=== PATIENT | male | born 1950 | race Caucasian/White ===

== ENCOUNTER → 2019-07-01 16:00 | Outpatient (BNVA) | payer MEDICARE, SELFPAY | PROVIDERS: PCP Family Medicine; Visit Provider Family Medicine | DX: E78.5 Hyperlipidemia, unspecified (principal); I25.10 Atherosclerotic heart disease of native coronary artery without angina pectoris; G89.4 Chronic pain syndrome; I10 Essential (primary) hypertension | CPT/HCPCS: 80053; 80061; 85025 ==

== ENCOUNTER → 2020-01-10 10:25 | Outpatient (BNVA) | payer MEDICARE, SELFPAY | PROVIDERS: PCP Family Medicine; Visit Provider Family Medicine | DX: E78.2 Mixed hyperlipidemia (principal); Z23 Encounter for immunization; G89.4 Chronic pain syndrome; Z12.5 Encounter for screening for malignant neoplasm of prostate; I25.10 Atherosclerotic heart disease of native coronary artery without angina pectoris; I10 Essential (primary) hypertension; K21.9 Gastro-esophageal reflux disease without esophagitis | CPT/HCPCS: 80053; 80061; 85025; G0103 ==

== ENCOUNTER 2020-01-31 09:08 | Outpatient (CLI) | payer MEDICARE, SELFPAY ==
--- NOTE | 2020-01-31 10:17 | ECG_ITS ---
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 Interpretive Statements NAME OF STUDY: LEXISCAN SESTAMIBI STRESS TEST INDICATION: Chest Pain, PROCEDURE: At the baseline, the EKG revealed normal sinus rhythm with diffuse nonspecific T wave changes and some ST changes that inferior leads. The baseline blood pressure was 154/89 mm Hg with a heart rate of 66 beats/min. Lexiscan was infused over a period of 20 seconds. A total of 0.4 milligrams of Lexiscan was infused. The stress phase was continued for a total of 5 minutes. Heart rate at the end of the stress phase was 97 with a blood pressure 156/86. The EKG at the peak infusion revealed half to [address] depressions in lead II, 3, aVF, V3 to V5. Sestamibi was injected 20 seconds after the Lexiscan infusion. Blood pressure at the end of the recovery phase was 150/87 with a heart rate of 88 per minute. CONCLUSION: 1. Borderline abnormal EKG changes with Lexiscan infusion, may suggest inferior and anterior wall ischemia 2. No LexiScan induced chest pain or cardiac arrhythmia 3. Normal blood pressure and heart rate response 4. Sestamibi/sestamibi perfusion scan pending; see separate report. Electronically Signed On 01-31-2020 21:31:46 CDT by Norma Tinsley M.D. [id number]
[2020-01-31 10:18] VITALS: BMI 27.4
--- NOTE | 2020-01-31 10:18 | NMCV_ITS ---
NM ernestina perf SPECT r/s* [id number] Comfort Laureano Age: 69 Gender: M : 1950 Exam Date: 01/31/2020 10:31 Ordering Phys: Mariam Garay Technologist: SHERICE Mcghee Exam Location: [facility] Indications: Dyspnea on exertion STRESS TEST Please see separate stress test report in [facility] for full findings IMAGE PROTOCOL Rest/Stress 1 Lexiscan Day Radiopharmaceutical Dose (mCi) Administration Site Administered by Rest: Tc-99m 10.6 IV SHERICE Mcghee Sestamibi Stress:Tc-99m 33.0 IV SHERICE Mcghee Sestamibi Rest: 31-Jan-2020 60 Discovery 630 Stress: 31-Jan-2020 45 Discovery 630 0.4mg Lexiscan. Images obtained in supine and prone position. SPECT RESULTS Technical Quality: Good Raw Data Analysis: Normal Image Corrections: No attenuation or motion correction applied Summed Stress Score: 2 Summed Rest Score: 2 Summed Difference Score: 0 PERFUSION FINDINGS Small area of decreased tracer uptake was noted in the apical lateral region, with no significant reversibility. FUNCTIONAL RESULTS (calculated via Gated SPECT) Stress Image LV EF (%): 59 Stress EDV (mL):59 TID: 0.95 Stress ESV (mL):24 FUNCTIONAL FINDINGS: Segmental wall motion analysis revealing no gross wall motion abnormalities. IMPRESSIONS 1. Myocardial perfusion imaging revealing a small area of persistent decreases uptake in the apical lateral region, suggestive of myocardial scarring versus attenuation artifact. 2. Normal left ventricular ejection fraction of 59%. 3. LV wall motion analysis revealing no gross wall motion normalities. 4. Normal LV volume. No significant coronary ischemia, based on the above findings Dr Norma Tinsley MD FACC (Electronically Signed) Final Date: 31 January 2020 16:02 S
[2020-01-31] MEDS: regadenoson 0.4 Mg/5 ml Syringe IVP (12:09)
[2020-01-31 12:10] VITALS: BP 158/90; PULSE 90
== END 2020-01-31 09:09 | disposition home or self-care (01) ==
LOC: RAD 09:14
PROVIDERS: PCP Family Medicine; Visit Provider Nurse Practitioner Family
DX: R06.00 Dyspnea, unspecified (principal); I25.10 Atherosclerotic heart disease of native coronary artery without angina pectoris; R07.9 Chest pain, unspecified
CPT/HCPCS: 78452; 93017; A9500; J2785

== ENCOUNTER → 2020-02-28 09:29 | Outpatient (BNVA) | payer MEDICARE, SELFPAY | PROVIDERS: PCP Family Medicine; Visit Provider Internal Medicine Critical Care Medicine | DX: Z11.59 Encounter for screening for other viral diseases (principal); R06.02 Shortness of breath | CPT/HCPCS: 87635 ==

== ENCOUNTER 2020-03-04 10:33 | Outpatient (CLI) | payer MEDICARE, SELFPAY ==
--- NOTE | 2020-03-04 10:45 | FL_ITS ---
WS: [id number] FL sniff test [id number] REASON FOR EXAM: Elevated right hemidiaphragm. 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 The right hemidiaphragm was evaluated with fluoroscopy with the patient upright. Several breathing ma neuvers were performed including a sniff test. While the excursion of the right hemidiaphragm is decreased in deep breathing and in the sniff test, there was no paradoxical movement. FL/FL sniff test [id number] IMPRESSION: Elevated right hemidiaphragm with attenuated excursion. No paradoxical movement .
== END 2020-03-04 10:34 | disposition home or self-care (01) ==
PROVIDERS: PCP Family Medicine; Visit Provider Internal Medicine Critical Care Medicine
DX: J98.6 Disorders of diaphragm (principal)
CPT/HCPCS: 76000

== ENCOUNTER 2020-03-09 10:43 | Outpatient (CLI) | payer MEDICARE, SELFPAY ==
--- NOTE | 2020-03-09 14:26 | PFTS_ITS ---
Date of Study:03/09/20 Date of Dictation: MECHANICS: Forced vital capacity (FVC) is reduced. Forced expiratory volume in one second (FEV1) is reduced. FEV1/FVC is normal. FLOW VOLUME LOOP: Mild scooping. LUNG VOLUMES: Total lung capacity (TLC) is reduced. Residual volume (RV) is normal. DIFFUSING CAPACITY FOR CARBON MONOXIDE: Normal. INTERPRETATION: The pulmonary function tests are consistent with mild restriction. There is no significant postbronchodilator response. The patient most likely has a combined obstructive and restrictive ventilatory defect. Gas exchange (DLCO) is normal. MTDD
== END 2020-03-09 10:44 | disposition home or self-care (01) ==
PROVIDERS: PCP Family Medicine; Visit Provider Internal Medicine Critical Care Medicine
DX: R06.02 Shortness of breath (principal)
CPT/HCPCS: 94060; 94726; 94729; J7611

== ENCOUNTER → 2020-09-16 10:57 | Outpatient (BNVA) | payer MEDICARE, SELFPAY | PROVIDERS: PCP Family Medicine; Visit Provider Family Medicine | DX: J98.4 Other disorders of lung (principal); R06.02 Shortness of breath; I25.10 Atherosclerotic heart disease of native coronary artery without angina pectoris; I10 Essential (primary) hypertension; G47.09 Other insomnia; E78.2 Mixed hyperlipidemia; G89.4 Chronic pain syndrome | CPT/HCPCS: 80053; 80061; 84443; 85025 ==

== ENCOUNTER → 2020-12-23 11:58 | Outpatient (BNVA) | payer MEDICARE, SELFPAY | PROVIDERS: PCP Family Medicine; Visit Provider Family Medicine | DX: R06.02 Shortness of breath (principal); I25.10 Atherosclerotic heart disease of native coronary artery without angina pectoris; G89.4 Chronic pain syndrome; R53.83 Other fatigue; E78.2 Mixed hyperlipidemia; K21.9 Gastro-esophageal reflux disease without esophagitis; G47.09 Other insomnia; I10 Essential (primary) hypertension | CPT/HCPCS: 80053; 80061; 82607; 84403; 84443; 85025 ==

== ENCOUNTER → 2021-02-08 10:29 | Outpatient (BNVA) | payer MEDICARE, SELFPAY | PROVIDERS: PCP Family Medicine; Visit Provider Nurse Practitioner Family | DX: R05.9 Cough, unspecified (principal); R06.02 Shortness of breath; J40 Bronchitis, not specified as acute or chronic; Z20.822 Contact with and (suspected) exposure to COVID-19 | CPT/HCPCS: 87635 ==

== ENCOUNTER → 2021-03-11 15:43 | Outpatient (BNVA) | payer MEDICARE, SELFPAY | PROVIDERS: PCP Family Medicine; Visit Provider Family Medicine | DX: J40 Bronchitis, not specified as acute or chronic (principal); R05.9 Cough, unspecified | CPT/HCPCS: 71046 ==

== ENCOUNTER → 2021-03-22 15:17 | Outpatient (BNVA) | payer MEDICARE, SELFPAY | PROVIDERS: PCP Family Medicine; Visit Provider Family Medicine | DX: R05.9 Cough, unspecified (principal); J98.11 Atelectasis; J84.10 Pulmonary fibrosis, unspecified; Q79.1 Other congenital malformations of diaphragm | CPT/HCPCS: 71046 ==

== ENCOUNTER 2021-07-13 13:46 | Outpatient (CLI) | payer MEDICARE, SELFPAY ==
--- NOTE | 2021-07-13 14:30 | US_ITS ---
WS: [id number] INDICATION: Inguinal hernia TECHNIQUE: Ultrasound RIGHT inguinal canal in the area of concern. FINDINGS: No visualized inguinal hernia or herniated bowel. Normal compressible intra-abdominal peris talsing bowel in the RIGHT lower quadrant. Prominent lymph node measuring 2.2 x 0.9 x 0.6 cm with pre served fatty hilum. This is nonspecific but may be reactive. No other suspicious abnormalities. US/US soft tissue/extremity 20518 IMPRESSION: No visualized inguinal hernia
== END 2021-07-13 13:47 | disposition home or self-care (01) ==
LOC: RAD 13:52
PROVIDERS: PCP Family Medicine; Visit Provider Family Medicine
DX: K40.90 Unilateral inguinal hernia, without obstruction or gangrene, not specified as recurrent (principal)
CPT/HCPCS: 76882

== ENCOUNTER → 2021-07-27 09:00 | Outpatient (BNVA) | payer MEDICARE, SELFPAY | PROVIDERS: PCP Family Medicine; Referring Provider Family Medicine; Visit Provider Surgery | DX: K43.9 Ventral hernia without obstruction or gangrene (principal) | CPT/HCPCS: 99204 ==

== ENCOUNTER 2021-08-02 08:28 | Day surgery (SDC) | payer MEDICARE, SELFPAY ==
[2021-07-30 12:38] VITALS: BMI 26.2
[2021-08-02] VITALS (16 sets, daily range): BP systolic 132–165; BP diastolic 73–102; PULSE 54–90; RESP 13–27; TEMP 36.3–36.7; O2SAT 90–94
--- NOTE | 2021-08-02 08:56 | W.PM.OPSFHP ---
Same Day Surgery H&P Indication for Procedure/HPI DATE OF PROCEDURE: August 02, 2021 CHIEF COMPLAINT/INDICATIONFOR SURGICAL PROCEDURE: Ventral hernia repair PREOP DIAGNOSIS: Ventral hernia PLANNED PROCEDURE: Operation Date: 08/02/21 10:20 Proposed Procedures p Laparoscopic Ventral Hernia Repair 77994/ventra hernia K43.9(Not Applicable) - Raza Cali MD Medications/Allergies* Home Medications Medication Instructions Recorded Confirmed Type nitroglycerin 0.4 mg sublingual 0.4 mg SUBLINGUAL Q5M PRN 07/01/19 07/30/21 History tablet aspirin 81 mg tablet,delayed 81 mg PO DAILY 07/04/19 07/30/21 History release (Adult Low Dose Aspirin) wpyitgszmum-vyo-zmzgnjosn-hrb 1 tab PO DAILY tab 01/02/20 07/30/21 History 149-hyalur 500 mg-500 mg-66.7 mg tablet (Yshiugeptyq-Biycibmmakt-CCX (with antiox)) tramadol 50 mg tablet 50 mg PO BID 07/30/21 07/30/21 History triamcinolone acetonide 0.5 % 1 applic TOPICAL BID 07/30/21 07/30/21 History topical cream (Triderm) Allergies/Adverse Reactions Allergy/AdvReac Type Severity Reaction Status Date / Time No Known Allergies Allergy Verified 07/30/21 12:33 Pertinent History/Comorbid Conditions* Medical History (Updated 07/06/21 @ 15:58 by Ximena Coronado MD) ASHD (arteriosclerotic heart disease) Bradycardia Chronic pain syndrome GERD (gastroesophageal reflux disease) Hypertension Insomnia Surgical History (Updated 01/16/21 @ 19:11 by Niesha Arriaga MD) S/P hernia repair Multiple S/P PTCA (percutaneous transluminal coronary angioplasty) S/P rotator cuff repair Right Family History (Updated 07/04/19 @ 15:15 by Kiki Cardona RN) Father, CVA Dementia Mother Heart disease Mother Cancer Mother Breast CA Stroke Father Social History Smoking and tobacco status: former smoker Quit status (tobacco): has quit using tobacco Year quit tobacco: 1995 [id number] Second hand smoke exposure: Yes Smoking risk assessment/counseling performed?: No Alcohol intake: former Desire information about alcohol rehabilitation?: No Counseling given: No Lives independently: Yes Household members: spouse Housing: House Marital status: service: No Current occupational status: retired History of recent travel: No Current gender identity: Male Pertinent Exam Findings alert, oriented x 3 and regular rate & rhythm Recommendations Surgery/Procedure today Coding Level of Care Code Acute Maintenance Mechanic for Noé Cabello
[2021-08-02] MEDS: sodium chloride 0.9% 1,000 ML 30 ML IV (10:14)
--- NOTE | 2021-08-02 10:30 | ANES.PREANE2 ---
Pre-Anesthetic Assessment Height/Weight: Height 1.65 m Weight 71.668 kg Temp Pulse Resp BP Pulse Ox 97.4 F L 54 L 16 146/73 93 08/02/21 10:00 08/02/21 10:00 08/02/21 10:00 08/02/21 10:00 08/02/21 10:00 Preop Diagnosis: Ventral hernia Operation Date: 08/02/21 10:20 Proposed Procedures p Laparoscopic Ventral Hernia Repair 77516/ventra hernia K43.9(Not Applicable) - Raza Cali MD Last intake: Intake Last Liquid Date 08/01/21 Last Liquid Time 20:00 Last Solid Date 08/01/21 Last Solid Time 20:00 Social former smoker Pulmonary Chronic Obstructive Pulmonary Disease R hemidiaphragm weakness/paralysis CV/HEM Arrythmia (antonio), Coronary Artery Disease (s/p PCI/stents (> 1 year ago)) and Hypertension IMPRESSIONS ?1.? Myocardial perfusion imaging revealing a small area of persistent decreases ?uptake in the apical lateral region, suggestive of myocardial scarring versus ?attenuation artifact. ?2.? Normal left ventricular ejection fraction? of 59%. ?3.? LV wall motion analysis revealing no gross wall motion normalities. ?4.? Normal LV volume. ?No significant coronary ischemia, based on the above finding 01/27 stress test CONCLUSION: 1.? Borderline abnormal EKG changes with Lexiscan infusion, may suggest inferior and anterior wall ischemia ?2. No LexiScan induced chest pain or cardiac arrhythmia 3.? Normal blood pressure and heart rate response 4.? Sestamibi/sestamibi perfusion scan pending; see separate report. GI Gastroesophageal Reflux Disease Anesthetic Plan ASA status: 3 Anesthesia: General Risk of > 500 ml blood loss (7ml/kg in children): No Medications/Allergies Home Medications Medication Instructions Recorded Confirmed Last Taken Type nitroglycerin 0.4 mg sublingual 0.4 mg SUBLINGUAL Q5M PRN 07/01/19 08/02/21 Unknown History tablet aspirin 81 mg tablet,delayed 81 mg PO DAILY 07/04/19 08/02/21 07/30/21 History release (Adult Low Dose Aspirin) oavrzuarbkz-iwe-xqjptedey-hrb 1 tab PO DAILY tab 01/02/20 08/02/21 Unknown History 149-hyalur 500 mg-500 mg-66.7 mg tablet (Ppjhgeerpxi-Wmmnwgnhmwg-FOP (with antiox)) atorvastatin 20 mg tablet See Rx Instructions .ROUTE 06/07/21 08/02/21 07/31/21 Rx .COMPLEX #90 tab albuterol sulfate 90 mcg/actuation 2 puff INHALATION Q6H PRN #18 g 07/06/21 08/02/21 Unknown Rx aerosol inhaler (Ventolin HFA) budesonide-formoterol HFA 160 2 puff INHALATION BID #10.2 g 07/06/21 08/02/21 Unknown Rx mcg-4.5 mcg/actuation aerosol inhaler (Symbicort) clopidogrel 75 mg tablet See Rx Instructions .ROUTE 07/06/21 08/02/21 07/30/21 Rx .COMPLEX #90 tab metoprolol tartrate 25 mg tablet 12.5 mg PO .HS #45 tab 07/06/21 08/02/21 08/01/21 Rx pantoprazole 40 mg tablet,delayed See Rx Instructions .ROUTE 07/06/21 08/02/21 08/01/21 Rx release .COMPLEX #30 tab tamsulosin 0.4 mg capsule See Rx Instructions .ROUTE 07/06/21 08/02/21 08/01/21 Rx .COMPLEX #30 cap trazodone 100 mg tablet See Rx Instructions .ROUTE 07/06/21 08/02/21 07/31/21 Rx .COMPLEX #90 tab tramadol 50 mg tablet 50 mg PO BID 07/30/21 08/02/21 07/31/21 History triamcinolone acetonide 0.5 % 1 applic TOPICAL BID 07/30/21 08/02/21 Unknown History topical cream (Triderm) Allergies Allergy/AdvReac Type Severity Reaction Status Date / Time No Known Allergies Allergy Verified 07/30/21 12:33 Current Medications Generic Name Dose Route Start Last Admin Trade Name Freq PRN Reason Stop Dose Admin Sodium Chloride 1,000 mls @ 30 mls/hr 08/02/21 09:30 08/02/21 10:14 Sodium Chloride 0.9% IV 08/03/21 09:29 30 mls/hr .Q24H VIANNEY Administration PFSH Anesthesia Medical History ASHD (arteriosclerotic heart disease) Bradycardia Chronic pain syndrome GERD (gastroesophageal reflux disease) Hypertension Insomnia Surgical History S/P hernia repair Multiple S/P PTCA (percutaneous transluminal coronary angioplasty) S/P rotator cuff repair Right Family History Mother Dementia Cancer Breast CA Heart disease Father , CVA Stroke Social History Smoking and tobacco status: former smoker Quit status (tobacco): has quit using tobacco Year quit tobacco: 1995 [id number] Second hand smoke exposure: Yes Smoking risk assessment/counseling performed?: No Alcohol intake: former Desire information about alcohol rehabilitation?: No Counseling given: No Lives independently: Yes Household members: spouse Housing: House Marital status: service: No Current occupational status: retired History of recent travel: No Current gender identity: Male Data Anesthesia Cardiac Studies: Sestamibi Stress Test (Cardiology) 01/31/20
--- NOTE | 2021-08-02 11:41 | P.OP_ITS ---
Operative Report Date of procedure: August 02, 2021 Pre-op diagnosis: Ventral hernia Post-op diagnosis: Incarcerated ventral hernia containing omentum, 2 separate defects 3 cm apart in the midline superior to the umbilicus Procedure done: Laparoscopic repair of incarcerated ventral hernia with ventralight ST mesh measuring 15 x 15 cm Pathology: none sent Surgeon: Raza Cali Anesthesia: General Condition: stable Disposition: PACU Procedure: The patient was taken to the Operating Room and was intubated under general anesthesia after the antibiotic had been administered. The abdomen was prepped and draped in a sterile manner. Using a 15 blade, a 2-cm incision was made in the left upper quadrant in the anterior axillary line and peritoneum was entered using open Spencer technique. A 10 mm Marquis port was placed and 15 mm of pneumoperitoneum was created after a 10 mm 30? scope had been introduced. 5 mm port was placed at the level of the umbilicus on the left side. Using a combination of electrocautery and scissors the peritoneum in the midline was taken down and the omental fat within the hernial sac was reduced. A spinal needle was introduced through the abdominal wall and the edges of the hernial defect were marked and measured 7x6 cm. A 4 cm margin was marked on the abdominal wall on the outer edge of the hernial defect. 15 x [address] mesh was selected and 4 separate 2-0 [place]-Luciano sutures were placed at the 4 corners of the mesh. Grannie needle was passed through the stab incisions and used to grasp the free ends of the [place]-Luciano sutures which were used to pull the mesh up against the abdominal wall; 5 mm SecurStraps were placed 1 cm apart along the edge of the mesh to hold it against the abdominal wall. At the end of this, it was noted that the mesh was well positioned over the hernial defect. 20 cc of saline mixed with 20cc of Exparel mixed with 20cc of 0.5% Marcaine was infiltrated in the midclavicular line bilaterally under laparoscopic visualization for a TAP block. All ports were removed under direct visualization and there was no bleeding noted from the port sites. The external oblique aponeurosis was approximated at LUQ port site using figure of eight 0 Vicryl suture. The subcutaneous tissue was approximated using 3-0 Vicryl sutures. The skin at all port sites was closed using subcuticular 4-0 Monocryl suture. The stab incisions and the port sites were covered with Dermabond. Abdominal binder was placed at the end of the procedure and the patient was extubated and transferred to recovery room in stable condition.
[2021-08-02] MEDS: fentaNYL 50 mcg/mL INJ 2mL IVP ×2 (12:01→12:18)
--- NOTE | 2021-08-02 12:24 | SUR.PHASEI ---
1151 PT TO PACU CONFUSED RESTLESS, SEE PAIN MEDS GIVEN BY DR BLAS RIGHT BEFORE ADMIT, PT DOES NOT OPEN EYES OR FOCUS ON SPEAKER ABDOMEN SOFT WITH 3 SITES WITH TROCAR SITES WITH SKIN GLUE AND 3 NEEDLE SITES WITH SKIN GLUE BILAT SCD'S ON PT HAS ID BRACELET TO LT WRIST PT ID'D WITH 2 IDENTIFIERS, IV TO RT AC #20 WITH NS 150 ML UP AT KVO RATE PER GRAVITY, 1201 PT RESTLES AND MOANING SEE PAIN MED GIVEN,ATTEMTS TO REORIENT PT REPEATEDLY
--- NOTE | 2021-08-02 12:41 | SUR.PHASEI ---
1218 PT OPENS EYES KNOWS NAME , CONFUSED TO ALL ELSE PT MOANS AND HOLDS ABDOMEN SEE PAIN MED GIVEN, PT ON 4LNC PT RESP EVEN AND UNLABORED. PT KEEPS TAKING MASK AND NASAL CANNULA OFF, PT REORIENTED REPEATEDLY, VSS NO DISTRESS NOTED AT THIS TIME MONITOR SR NO ECTOPY NOTED. 1243 PT MORE ALERT KNOWS NAME AND WHERE HE LIVES, PT RESPONDS VERBALLY AND APPROPRIATELY TO MOST QUESTIONS ABOUT PAIN AND NAUSEA, PT FORGETS WHERE HE IS NOW AND RECENT EVENTS. PT TO OPS HANDOFF AT BEDSIDE, PT STATES HE IS (ALWAYS SLOW TO AWAKE).
[2021-08-02] MEDS: HYDROcodone-acetaminophen 5-325 mg Tablet 1 TAB PO (13:31)
--- NOTE | 2021-08-02 14:40 | ANE.PACU2 ---
Inpatient post-anesthesia follow up: Airway intact: Yes Vital signs: Temperature 98 F Pulse Rate 83 Respiratory Rate 16 Blood Pressure 133/77 Pulse Oximetry 90 Oxygen Delivery Me thod Room Air Oxygen Flow Rate 3 Fraction of Inspir ed Oxygen Hydration adequate: Yes Nausea and vomiting: No Pain level: 2 Mental status: Baseline
== END 2021-08-02 13:37 | disposition home or self-care (01) ==
PROVIDERS: PCP Family Medicine; Visit Provider Surgery
PROC: 0WQF4ZZ Repair Abdominal Wall, Percutaneous Endoscopic Approach (ICD-10-PCS; CPT 49653; principal; 2021-08-02 10:20)
DX: K43.6 Other and unspecified ventral hernia with obstruction, without gangrene (principal); Z87.891 Personal history of nicotine dependence; J44.9 Chronic obstructive pulmonary disease, unspecified; G81.90 Hemiplegia, unspecified affecting unspecified side; K21.9 Gastro-esophageal reflux disease without esophagitis; I25.10 Atherosclerotic heart disease of native coronary artery without angina pectoris; I10 Essential (primary) hypertension; G89.4 Chronic pain syndrome; Z79.82 Long term (current) use of aspirin; Z79.891 Long term (current) use of opiate analgesic
CPT/HCPCS: 49653; C1781; C9290; J0690; J1100; J2250; J2405; J2704; J3010; J3490; J7030

== ENCOUNTER → 2021-08-17 08:57 | Outpatient (BNVA) | payer MEDICARE, SELFPAY | PROVIDERS: PCP Family Medicine; Visit Provider Surgery | DX: Z98.890 Other specified postprocedural states (principal); Z87.19 Personal history of other diseases of the digestive system ==

== ENCOUNTER → 2021-09-14 07:56 | Outpatient (BNVA) | payer MEDICARE, SELFPAY | PROVIDERS: PCP Family Medicine; Visit Provider Surgery | DX: Z98.890 Other specified postprocedural states (principal); Z87.19 Personal history of other diseases of the digestive system | CPT/HCPCS: 99024 ==

== ENCOUNTER → 2021-11-23 14:04 | Outpatient (BNVA) | payer MEDICARE, SELFPAY | PROVIDERS: PCP Family Medicine; Visit Provider Family Medicine | DX: I10 Essential (primary) hypertension (principal); I25.10 Atherosclerotic heart disease of native coronary artery without angina pectoris; E78.5 Hyperlipidemia, unspecified; Z12.5 Encounter for screening for malignant neoplasm of prostate; E78.2 Mixed hyperlipidemia; J44.1 Chronic obstructive pulmonary disease with (acute) exacerbation; M19.90 Unspecified osteoarthritis, unspecified site | CPT/HCPCS: 80053; 80061; 84443; 85025; G0103 ==

== ENCOUNTER → 2022-01-13 12:44 | Outpatient (BNVA) | payer MEDICARE, SELFPAY | PROVIDERS: PCP Family Medicine; Visit Provider Internal Medicine | DX: I25.10 Atherosclerotic heart disease of native coronary artery without angina pectoris (principal); I10 Essential (primary) hypertension; R00.1 Bradycardia, unspecified; Z87.891 Personal history of nicotine dependence | CPT/HCPCS: 99214 ==

== ENCOUNTER → 2022-03-14 14:33 | Outpatient (BNVA) | payer MEDICARE, SELFPAY | PROVIDERS: PCP Family Medicine; Visit Provider Family Medicine | DX: R51.9 Headache, unspecified (principal) | CPT/HCPCS: 85025; 85651 ==

== ENCOUNTER 2022-03-15 20:16 | Emergency (ER) | payer MEDICARE, SELFPAY ==
[2022-03-15 20:21] VITALS: BP 160/81; PULSE 70; RESP 18; TEMP 36.8; O2SAT 94; BMI 24.3
--- NOTE | 2022-03-15 20:35 | CTR_ITS ---
PROCEDURE INFORMATION: Exam: CT Head Without Contrast Exam date and time: 03/15/2022 9:15 PM Age: 71 years old Clinical indication: Pain; Patient HX: C/O headache; Additional info: HUBBARD TECHNIQUE: Imaging protocol: Computed tomography of the head without contrast. Radiation optimization: All CT scans at this facility use at least one of these dose optimization techniques: automated exposure control; mA and/or kV adjustment per patient size (includes targeted exams where dose is matched to clinical indication); or iterative reconstruction. COMPARISON: [place] [id number] 07/25/2017 8:55 AM RADIATION DOSE METRICS: Total DLP (mGy-cm): 1232.68 FINDINGS: Brain: No CT evidence for acute ischemia, mass or hemorrhage. Cerebral ventricles: Generalized sulcal widening and ventricular enlargement is due to white matter volume loss which is greater than expected for the patient's age. Paranasal sinuses: Mild mucosal thickening in the paranasal sinuses without fluid levels. Mastoid air cells: Visualized mastoid air cells are well aerated. Bones/joints: Unremarkable. No acute fracture. Soft tissues: Unremarkable. CT/CT head wo con* [id number] IMPRESSION: 1. No acute intracranial findings. 2. White matter volume loss is greater than typical for the patient's age
--- NOTE | 2022-03-15 20:35 | XRR_ITS ---
PROCEDURE INFORMATION: Exam: XR Chest Exam date and time: 03/15/2022 8:43 PM Age: 71 years old Clinical indication: Other: AMS TECHNIQUE: Imaging protocol: Radiologic exam of the chest. Views: 1 view. COMPARISON: CR XR chest 2V* [id number] 03/22/2021 3:21 PM FINDINGS: Tubes, catheters and devices: There is a new surgical clip per screw at the left thoracic inlet. Lungs: Since March 2021 there is a new thick-walled left lower lobe cavitary structure measuring approximately 6.4 x 6.2 cm. No fluid levels. The lungs are otherwise clear and free of effusion. Pleural spaces: Unremarkable. No pleural effusion. No pneumothorax. Heart/Mediastinum: Unremarkable. No cardiomegaly. Bones/joints: Chronic right humeral head ligamentous anchor. Soft tissues: Possible chronic left mastectomy. XR/XR chest 1V portable [id number] IMPRESSION: New left lower lobe 6 cm cavitary lesion. This could be infectious or neoplastic. Recommend further evaluation with CT
--- NOTE | 2022-03-15 20:39 | ED_ITS ---
HPI - Neuro Symptoms/Deficit General: Chief Complaint: Neuro Symptoms/Deficit Stated Complaint: headache, swollen nose Time Seen by Provider: 03/15/22 20:32 Source: patient Mode of arrival: ambulatory Limitations: no limitations History of Present Illness: 71-year-old male states he been having right-sided facial pain and headache for the last 4 to 5 days family states has had some confusion has been going on for months his PCP was concerned he could have dementia he states that he has had some swelling to his right side of the face and they are worried about facial droop as well. No slurred speech no weakness he states his pain is currently a 7 out of 10 he did have chickenpox as a kid this rash appears to be shingles. Associated symptoms: Reports headache(s); Deny chest pain, nausea or vomiting Review of Systems Const: Denies: fever(s), chills, body aches or change in appetite Eyes: Denies: blurry vision or eye discomfort ENMT: Denies: throat pain or dental pain Card: Denies: chest pain Resp: Denies: dyspnea GI: Denies: abdominal pain, nausea, vomiting or diarrhea : Denies: dysuria Musc: Denies: neck pain or back pain Skin/Breast: Denies: rash Neuro: Reports: headache(s) Psych: Denies: depression Kishor/Lymph: Denies: easy bruising All/Imm: Denies: urticaria PFSH ED PFSH: Medical History ASHD (arteriosclerotic heart disease) Bradycardia Chronic pain syndrome GERD (gastroesophageal reflux disease) Hypertension Insomnia Surgical History H/O ventral hernia repair (08/02/21) S/P hernia repair Multiple S/P PTCA (percutaneous transluminal coronary angioplasty) S/P rotator cuff repair Right Family History Mother Dementia Cancer Breast CA Heart disease Father , CVA Stroke Social History Smoking and tobacco status: former smoker Quit status (tobacco): has quit using tobacco Year quit tobacco: 1995 [id number] Second hand smoke exposure: Yes Smoking risk assessment/counseling performed?: No Alcohol intake: former Desire information about alcohol rehabilitation?: No Counseling given: No Lives independently: Yes Household members: spouse Housing: House Marital status: service: No Current occupational status: retired History of recent travel: No Current gender identity: Male NIH stroke score NIHSS: Level Of Consciousness - 1a: 0 Level Of Consciousness Questions - 1b: Both Correct Level Of Consciousness Commands - 1c: Both Correct Best Gaze - 2: Normal Visual Wallace - 3: No Visual Loss Facial Palsy - 4: Normal Motor Arm Right - 5: No Drift Motor Arm Left - 5: No Drift Motor Leg Right - 6: No Drift Motor Leg Left - 6: No Drift Limb Ataxia - 7: Absent Sensory - 8: Normal Best Language - 9: No Aphasia Dysarthia - 10 : Normal Extinction And Inattention - 11: 0 Score: Total Score: 0 Physical Exam Const: COMMON NORMALS: no acute distress, healthy appearing and alert ORIENTATION/CONSCIOUSNESS: Yes oriented to person and Yes oriented to place; not oriented to time HENMT: COMMON NORMALS: normocephalic and atraumatic HEAD & SCALP: normocephalic and atraumatic OTHER: Rash to the right side of his nose patient's scalp that is very tender to touch appearance of shingles Eye: COMMON NORMALS: Equal, round and reactive pupils present and EOMs intact bilaterally PUPIL: Yes Equal, round and reactive pupils present Neck/C-Spine: COMMON NORMALS: full ROM and supple Chest: COMMONS NORMALS: normal inspection of the chest and normal palpation of entire chest wall Resp: COMMON NORMALS: normal respiratory effort, No retractions, No use of accessory muscles and clear to auscultation bilaterally AUSCULTATION: clear to auscultation bilaterally Cardio: COMMON NORMALS: regular rate, regular rhythm and No murmurs present (Cardio) RATE: regular rate RHYTHM: regular rhythm GI: COMMON NORMALS: Normal to inspection, nondistended, normoactive bowel sounds present, Soft to palpation, non-tender and no masses PALPATION: Yes Soft to palpation Extremity: COMMON NORMALS: normal to inspection and full ROM Neuro: COMMON NORMALS: CN's II-XII intact bilaterally, moves all extremities and no focal motor deficits SENSORIUM/ORIENTATION: Yes alert, Yes oriented to person, Yes oriented to place and No oriented to time SPEECH: speech normal GAIT: Yes Normal gait present Psych: COMMON NORMALS: mental status grossly normal, Normal thought process present and cooperative THOUGHT PROCESS: Normal thought process present Skin: COMMON NORMALS: no rashes or lesions noted and no wounds GENERAL SKIN EXAM: no rashes or lesions noted Course Vital Signs: Vital signs: Vital Signs Temperature 98.2 F 03/15/22 20:21 Pulse Rate 68 03/15/22 21:40 Respiratory Rate 21 H 03/15/22 21:40 Blood Pressure 151/88 03/15/22 21:40 Pulse Oximetry 95 03/15/22 21:40 Oxygen Delivery Me thod 03/15/22 20:21 MDM - Neuro Symptoms/Deficit Medical Decision Making Patient presents here with headache from his shingles he does have shingles the right side of his face I did stain his eye he has no signs of ocular involvement we will start him on acyclovir I did speak to ophthalmology with he is to follow-up in 1 to 2 days he is return if worsening. Lab Data 03/15/22 20:40 03/15/22 20:40 Radiology Impressions Chest X-Ray 03/15/22 20:35 IMPRESSION: New left lower lobe 6 cm cavitary lesion. This could be infectious or neoplastic. Recommend further evaluation with CT Head CT 03/15/22 20:35 IMPRESSION: 1. No acute intracranial findings. 2. White matter volume loss is greater than typical for the patient's age Chest CT 03/15/22 20:56 IMPRESSION: 1. Mild emphysematous changes. 2. Old granulomatous disease 3. Coronary atherosclerotic disease. 4. No acute infiltrate. 5. Pulmonary findings questioned on the chest radiograph of the result of an extraneous foreign object external to the patient. No acute pulmonary pathology is identified. Laboratory Results WBC 8.4 10^3/uL (4.0-10.0) 03/15/22 20:40 RBC 5.22 10^6/uL (4.1-5.3) 03/15/22 20:40 Hgb 16.3 g/dL (11.7-16.6) 03/15/22 20:40 Hct 49.1 % (42.0-52.0) 03/15/22 20:40 MCV 94.1 fl (80-94) H 03/15/22 20:40 MCH 31.2 pg (28.0-34.0) 03/15/22 20:40 MCHC 33.2 g/dL (30.0-36.0) 03/15/22 20:40 RDW 12.7 % (12.1-15.1) 03/15/22 20:40 Plt Count 205 10^3/cmm (130-400) 03/15/22 20:40 MPV 9.5 fL (7.4-10.4) 03/15/22 20:40 Neut % (Auto) 68.2 % 03/15/22 20:40 Lymph % (Auto) 20.6 % 03/15/22 20:40 [place] % (Auto) 8.4 % 03/15/22 20:40 Eos % (Auto) 2.1 % 03/15/22 20:40 Baso % (Auto) 0.5 % 03/15/22 20:40 Neut # (Auto) 5.75 10^3/uL (1.8-7.7) 03/15/22 20:40 Lymph # (Auto) 1.7 10^3/uL (0.8-4.8) 03/15/22 20:40 [place] # (Auto) 0.7 10^3/uL (0.2-0.9) 03/15/22 20:40 Eos # (Auto) 0.2 10^3/uL (0.0-0.8) 03/15/22 20:40 Baso # (Auto) 0.0 10^3/uL (0.0-0.1) 03/15/22 20:40 Nucleated RBC % (auto) 0 % 03/15/22 20:40 Nucleated RBCs # 0.0 /100WBC 03/15/22 20:40 Sodium 140 mmol/L (136-145) 03/15/22 20:40 Potassium 3.3 mmol/L (3.5-5.1) L 03/15/22 20:40 Chloride 101 mmol/L (98-107) 03/15/22 20:40 Carbon Dioxide 32 mmol/L (22-29) H 03/15/22 20:40 Anion Gap 10.3 (5-19) 03/15/22 20:40 BUN 8 mg/dL (8-23) 03/15/22 20:40 Creatinine 0.9 mg/dL (0.7-1.2) 03/15/22 20:40 GFR Calculation 83.7 mL/min (90-130) L 03/15/22 20:40 Glucose 166 mg/dL (65-115) H 03/15/22 20:40 Calculated Osmolality 292 mOsm/kg (285-295) 03/15/22 20:40 Calcium 10.5 mg/dL (8.5-10.5) 03/15/22 20:40 Total Bilirubin 0.5 mg/dL (0.15-1.2) 03/15/22 20:40 AST 11 U/L (0-40) 03/15/22 20:40 ALT 10 U/L (0-41) 03/15/22 20:40 Alkaline Phosphatase 69 U/L (40-130) 03/15/22 20:40 Total Protein 6.7 g/dL (6.6-8.7) 03/15/22 20:40 Albumin 4.2 g/dL (3.5-5.2) 03/15/22 20:40 Globulin 2.5 g/dL (1.3-4.6) 03/15/22 20:40 Discharge Plan Discharge Patient Disposition: Home Clinical Impression: Shingles, Headache Condition: Stable Prescriptions: New hydrocodone-acetaminophen 5-325 mg tablet 1 tab PO Q6H PRN (Reason: pain) Qty: 14 0RF ondansetron 4 mg tablet,disintegrating 4 mg PO Q6H PRN (Reason: nausea and vomiting) Qty: 14 0RF acyclovir 800 mg tablet 800 mg PO 5XD 7 Days Qty: 35 0RF Rx Instructions: space evenly during waking hours erythromycin 5 mg/gram (0.5 %) ointment 1 applic ophthalmic (eye) Q8H 5 Days Qty: 3.5 0RF No Action nitroglycerin 0.4 mg tablet, sublingual 0.4 mg SUBLINGUAL Q5M PRN (Reason: Chest Pain) aspirin [Adult Low Dose Aspirin] 81 mg tablet,delayed release (DR/EC) 81 mg PO DAILY metoprolol tartrate 25 mg tablet 12.5 mg PO .HS Qty: 45 3RF pantoprazole 40 mg tablet,delayed release (DR/EC) See Rx Instructions .ROUTE .COMPLEX Qty: 30 2RF Dose Instruction: Take 1 tablet by mouth once daily Rx Instructions: Take 1 tablet by mouth once daily tamsulosin 0.4 mg capsule See Rx Instructions .ROUTE .COMPLEX Qty: 30 5RF Dose Instruction: Take 1 capsule by mouth once daily Rx Instructions: Take 1 capsule by mouth once daily trazodone 100 mg tablet See Rx Instructions .ROUTE .COMPLEX Qty: 90 1RF Dose Instruction: TAKE 1 TABLET BY MOUTH AT BEDTIME NEEDED FOR SLEEP Rx Instructions: TAKE 1 TABLET BY MOUTH AT BEDTIME NEEDED FOR SLEEP clopidogrel 75 mg tablet See Rx Instructions .ROUTE .COMPLEX Qty: 90 3RF Hold Instructions: Resume on 08/06/21. Dose Instruction: Take 1 tablet by mouth once daily Rx Instructions: Take 1 tablet by mouth once daily atorvastatin 20 mg tablet See Rx Instructions .ROUTE .COMPLEX Qty: 90 1RF Dose Instruction: Take 1 tablet by mouth once daily Rx Instructions: Take 1 tablet by mouth once daily memantine [Namenda] 10 mg tablet 10 mg PO ONCE Qty: 30 2RF tramadol 50 mg tablet 50 mg PO Q8H Qty: 90 0RF triamcinolone acetonide [Triderm] 0.5 % cream 1 applic topical BID Discharge Orders: Discharge ED (Routine); Ordered 03/15/22 Ordered By: Rafaela Hall Referrals: Antwon Kemp MD [Physician] - 1-3 days Ximena Coronado MD [Primary Care Provider] - Discharge Diet: Advance as tolerated Discharge Activity: Resume usual activity Patient Instructions: Ct (ED) Coding Level of Care Code ED Door Clamper for Chg Fwd Exam Comprehensive
--- NOTE | 2022-03-15 20:56 | CTR_ITS ---
PROCEDURE INFORMATION: Exam: CT Chest Without Contrast; Diagnostic Exam date and time: 03/15/2022 9:20 PM Age: 71 years old Clinical indication: Shortness of breath; Prior surgery; Surgery type: Coronary stent. Patient HX: C/O SOB. History of copd. ; Additional info: Mass TECHNIQUE: Imaging protocol: Diagnostic computed tomography of the chest without contrast. Radiation optimization: All CT scans at this facility use at least one of these dose optimization techniques: automated exposure control; mA and/or kV adjustment per patient size (includes targeted exams where dose is matched to clinical indication); or iterative reconstruction. COMPARISON: CR (CHEST, ) 03/15/2022 8:43 PM RADIATION DOSE METRICS: Total DLP (mGy-cm): 340.5 FINDINGS: Lungs: There are findings of paraseptal emphysema in the upper lobes. There is some mild dependent atelectasis in both lungs. No acute infiltrate is identified. There is calcified granuloma in the right middle lobe. There is a foreign object within the patient's clothing overlying the upper left chest, most likely a set of dentures. These extraneous foreign objects are the culprit responsible for the findings on the recent chest radiograph interpreted as possible cavitary pulmonary lesion. No cavitary pulmonary lesion or other acute pulmonary finding is identified. Pleural spaces: Unremarkable. No pneumothorax. No pleural effusion. Heart: Heart is within normal limits of size. Coronary arteries: There is severe atherosclerotic calcification of the coronary arteries. Lymph nodes: There is a right hilar calcification in keeping with calcified lymph node from old granulomatous disease. Vasculature: Unremarkable. No aortic aneurysm. Bones/joints: Unremarkable. No acute fracture. Soft tissues: No cavitary pulmonary lesion or specific breast abnormality is identified. CT/CT chest wo con [id number] IMPRESSION: 1. Mild emphysematous changes. 2. Old granulomatous disease 3. Coronary atherosclerotic disease. 4. No acute infiltrate. 5. Pulmonary findings questioned on the chest radiograph of the result of an extraneous foreign object external to the patient. No acute pulmonary pathology is identified.
[2022-03-15 20:58] LABS: Basophils % 0.5 %; Eosinophils # 0.2 10^3/uL (0.0-0.8); Eosinophils % 2.1 %; Hematocrit 49.1 % (42.0-52.0); Hemoglobin 16.3 g/dL (11.7-16.6); Lymphocytes # 1.7 10^3/uL (0.8-4.8); Lymphocytes % 20.6 %; Mean Corpuscular HGB Conc 33.2 g/dL (30.0-36.0); Mean Corpuscular Hemoglobin 31.2 pg (28.0-34.0); Mean Corpuscular Volume 94.1 fl (80-94); Mean Platelet Volume 9.5 fL (7.4-10.4); Monocytes # 0.7 10^3/uL (0.2-0.9); Monocytes % 8.4 %; Neutrophils # 5.75 10^3/uL (1.8-7.7); Neutrophils % 68.2 %; Nucleated Red Blood Cells % 0 %; Platelet Count 205 10^3/cmm (130-400); Red Blood Count 5.22 10^6/uL (4.1-5.3); Red Cell Distribution Width 12.7 % (12.1-15.1); White Blood Count 8.4 10^3/uL (4.0-10.0)
[2022-03-15 21:15] LABS: Alanine Aminotransferase 10 U/L (0-41); Albumin Level 4.2 g/dL (3.5-5.2); Alkaline Phosphatase 69 U/L (40-130); Anion Gap 10.3 (5-19); Aspartate Amino Transferase 11 U/L (0-40); Blood Urea Nitrogen 8 mg/dL (8-23); Calcium 10.5 mg/dL (8.5-10.5); Carbon Dioxide 32 mmol/L (22-29); Chloride 101 mmol/L (98-107); Globulin 2.5 g/dL (1.3-4.6); Glomerular Filtration Rate 83.7 mL/min (90-130); Glucose 166 mg/dL (65-115); Osmolality Calculated 292 mOsm/kg (285-295); Potassium 3.3 mmol/L (3.5-5.1); Sodium 140 mmol/L (136-145); Total Bilirubin 0.5 mg/dL (0.15-1.2); Total Protein 6.7 g/dL (6.6-8.7)
[2022-03-15 21:40] VITALS: BP 151/88; PULSE 68; RESP 21; O2SAT 95
[2022-03-15 22:01] LABS: Add Urine Microscopic? NO; Charge for UA Resulting for Rev
[2022-03-15] MEDS: HYDROcodone-acetaminophen 5-325 mg Tablet 2 TAB PO (22:33)
[2022-03-15] MEDS: fluorescein 1 mg Strip EYE-BOTH (22:33)
[2022-03-15] MEDS: tetracaine 0.5% Op Soln 4 mL Btl 1 DROP EYE-BOTH (22:33)
[2022-03-15 22:39] LABS: Bilirubin Urine Neg (Negative); Blood Urine Neg (Negative); Glucose Urine UA Norm (Normal); Ketones Urine 1+ (Negative); Leukocyte Esterase Urine Negative (Negative); Nitrate Urine Negative (Negative); Protein Urine Neg (Negative); Urine Appearance Clear (CLEAR); Urine Color Yellow (Yellow); Urobilinogen Urine Norm (Negative); pH Urine 5 (5-7)
[2022-03-15 22:40] VITALS: BP 138/85; PULSE 73; RESP 22; O2SAT 93
== END 2022-03-15 22:40 | disposition home or self-care (01) ==
PROVIDERS: Emergency Provider Emergency Medicine; PCP Family Medicine
DX: R51.9 Headache, unspecified (principal); B02.9 Zoster without complications
CPT/HCPCS: 70450; 71045; 71250; 80053; 81003; 85025; 99284

== ENCOUNTER → 2022-04-21 12:31 | Outpatient (BNVA) | payer MEDICARE, SELFPAY | PROVIDERS: PCP Family Medicine; Visit Provider Family Medicine | DX: E87.6 Hypokalemia (principal); B02.23 Postherpetic polyneuropathy | CPT/HCPCS: 80048 ==

== ENCOUNTER → 2023-01-12 13:02 | Outpatient (BNVA) | payer MEDICARE, SELFPAY | PROVIDERS: PCP Family Medicine; Visit Provider Internal Medicine | DX: I25.10 Atherosclerotic heart disease of native coronary artery without angina pectoris (principal); I10 Essential (primary) hypertension; R00.1 Bradycardia, unspecified; Z87.891 Personal history of nicotine dependence | CPT/HCPCS: 99214 ==

== ENCOUNTER → 2023-01-31 18:18 | Outpatient (BNVA) | payer MEDICARE, SELFPAY | PROVIDERS: PCP Family Medicine; Visit Provider Family Medicine | DX: E78.5 Hyperlipidemia, unspecified; G47.00 Insomnia, unspecified; I10 Essential (primary) hypertension; K21.9 Gastro-esophageal reflux disease without esophagitis; R53.83 Other fatigue | CPT/HCPCS: 80053; 80061; 84403; 84443; 85025 ==

== ENCOUNTER → 2023-05-10 09:46 | Outpatient (BNVA) | payer MEDICARE, SELFPAY | PROVIDERS: PCP Family Medicine; Visit Provider Family Medicine | DX: Z12.5 Encounter for screening for malignant neoplasm of prostate (principal); E87.6 Hypokalemia; I10 Essential (primary) hypertension; R53.83 Other fatigue | CPT/HCPCS: 80053; 82607; 85025; G0103 ==

== ENCOUNTER → 2024-01-23 11:52 | Outpatient (BNVA) | payer MEDICARE, SELFPAY | PROVIDERS: PCP Family Medicine; Visit Provider Family Medicine | DX: I10 Essential (primary) hypertension (principal); I25.10 Atherosclerotic heart disease of native coronary artery without angina pectoris; E78.2 Mixed hyperlipidemia; E87.6 Hypokalemia; G30.0 Alzheimer's disease with early onset; F02.80 Dementia in other diseases classified elsewhere, unspecified severity, without behavioral disturbance, psychotic disturbance, mood disturbance, and anxiety; J98.4 Other disorders of lung; R53.83 Other fatigue; R73.9 Hyperglycemia, unspecified; E03.9 Hypothyroidism, unspecified | CPT/HCPCS: 80053; 80061; 82607; 83036; 84443 ==

== ENCOUNTER → 2024-04-18 12:42 | Outpatient (BNVA) | payer MEDICARE, SELFPAY | PROVIDERS: PCP Family Medicine; Visit Provider Internal Medicine Cardiovascular Disease | DX: I10 Essential (primary) hypertension (principal); Z98.61 Coronary angioplasty status; I25.10 Atherosclerotic heart disease of native coronary artery without angina pectoris; K21.9 Gastro-esophageal reflux disease without esophagitis; Z87.891 Personal history of nicotine dependence | CPT/HCPCS: 99213 ==

== ENCOUNTER → 2024-06-11 12:43 | Outpatient (BNVA) | payer MEDICARE, SELFPAY | PROVIDERS: PCP Family Medicine; Visit Provider Surgery | DX: K46.9 Unspecified abdominal hernia without obstruction or gangrene (principal) | CPT/HCPCS: 99204 ==

== ENCOUNTER → 2024-06-24 10:56 | Outpatient (BNVA) | payer MEDICARE, SELFPAY | PROVIDERS: PCP Family Medicine; Visit Provider Family Medicine | DX: Z01.818 Encounter for other preprocedural examination (principal) | CPT/HCPCS: 80053; 81003; 85007; 85027; 93005 ==

== ENCOUNTER 2024-07-01 06:46 | Day surgery (SDC) | payer MEDICARE, SELFPAY ==
[2024-07-01] VITALS (13 sets, daily range): BP systolic 116–166; BP diastolic 57–112; PULSE 56–93; RESP 14–66; TEMP 36.3–36.6; O2SAT 90–99; BMI 22.6
--- NOTE | 2024-07-01 07:33 | ANES.PREANE2 ---
Pre-Anesthetic Assessment Height/Weight: Height 5 ft 8 in Weight 149 lb Temp Pulse Resp BP Pulse Ox O2 Del Method 97.7 F 56 L 16 166/91 93 Room Air 07/01/24 07:30 07/01/24 07:30 07/01/24 07:30 07/01/24 07:30 07/01/24 07:30 07/01/24 07:30 Preop Diagnosis: Right inguinal hernia Operation Date: 07/01/24 08:40 Proposed Procedures p Open Right Inguinal Hernia Repair w/Mesh 24251 K40.90(Right) - Sonny Owens MD Was Beta Kaela taken within 24 hours: N/A Was Clonidine taken within 24 hours: N/A Social No alcohol and No tobacco Quit smoking years ago Exam alert, oriented x 3, clear to auscultation bilaterally and regular rate & rhythm Airway Submandibular: within normal limits Cervical ROM: within normal limits Mallampati: Class II Comments: Comments: Edentulous Anesthetic Plan ASA status: 3 Anesthesia: General Other: No prior issues with anesthesia NPO since yesterday evening History of GERD on Protonix CAD history with stents placed 4 years ago. Plavix taken 06/24/2024 Recent labs reviewed and acceptable for procedure today He is able to perform ADLs Plan for GETA Medications/Allergies Home Medications ?Medication ?Instructions ?Recorded ?Confirmed ?Last Taken ?Type aspirin 81 mg tablet,delayed 81 mg PO DAILY 07/04/19 06/26/24 06/24/24 History release (Adult Low Dose Aspirin) ondansetron 4 mg disintegrating 4 mg PO Q6H PRN nausea and 03/15/22 06/26/24 Unknown Rx tablet vomiting #14 tabs nitroglycerin 0.4 mg sublingual 0.4 mg sublingual Q5M PRN Chest 01/12/23 06/26/24 Unknown Rx tablet Pain #25 tabs diclofenac sodium 1 % topical gel 2 g topical QID #100 grams 01/31/23 06/26/24 Unknown Rx (Voltaren Arthritis Pain) tramadol 50 mg tablet 50 mg PO Q8H #90 tabs 06/07/24 06/26/24 07/01/24 Rx lion's lynnette mushroom capsules 2,000 mg PO DAILY 06/24/24 06/26/24 06/25/24 History multivitamin (Daily Multi-Vitamin 1 tab PO DAILY 06/24/24 06/26/24 06/26/24 History tablet) clopidogrel 75 mg tablet 75 mg PO DAILY 06/26/24 06/26/24 06/24/24 History memantine 10 mg tablet 10 mg PO DAILY 06/26/24 06/26/24 07/01/24 History pantoprazole 40 mg tablet,delayed 40 mg PO DAILY 06/26/24 06/26/24 07/01/24 History release tamsulosin 0.4 mg capsule 0.4 mg PO DAILY 06/26/24 06/26/24 06/26/24 History Allergies Allergy/AdvReac Type Severity Reaction Status Date / Time No Known Allergies Allergy Verified 06/24/24 11:25 [facility] Anesthesia Medical History Bradycardia ASHD (arteriosclerotic heart disease) Chronic pain syndrome GERD (gastroesophageal reflux disease) Insomnia Hypertension Surgical History H/O ventral hernia repair (08/02/21) S/P hernia repair Multiple S/P PTCA (percutaneous transluminal coronary angioplasty) S/P rotator cuff repair Right Family History Mother Dementia Cancer Breast CA Heart disease Father , CVA Stroke Social History Smoking and tobacco/nicotine status: former use of tobacco/nicotine Quit status (tobacco/nicotine): has quit using Year quit tobacco: 1995 [id number] Second hand smoke exposure: Yes Alcohol intake: former Substance/Drug Use: never Lives independently: Yes Household members: spouse Housing: House Marital status: service: No Current occupational status: retired Do you think of yourself as: Straight/Heterosexual Current gender identity: Male Data Anesthesia Cardiac Studies: Sestamibi Stress Test (Cardiology) 01/31/20
--- NOTE | 2024-07-01 08:03 | P.HPUD_ITS ---
Surgery/Procedure H&P Update DATE OF PROCEDURE: July 01, 2024 DATE H&P PERFORMED: 06/11/24 H&P UPDATE INFORMATION: I have reviewed H&P completed within last 30 days, I have examined patient prior to procedure, No changes to prior documentation and H&P is in [facility] EMR on date indicated PREOP DIAGNOSIS: Right inguinal hernia PLANNED PROCEDURE: Operation Date: 07/01/24 08:40 Proposed Procedures p Open Right Inguinal Hernia Repair w/Mesh 94263 K40.90(Right) - Sonny Owens MD
[2024-07-01] MEDS: sodium chloride 0.9% 1,000 ML 30 ML IV (08:23)
[2024-07-01] MEDS: ceFAZolin 2,000 mg SDV 2000 MG IVP (08:32)
[2024-07-01] MEDS: BUPivacaine 0.25% INJ 10 mL INJECTION (10:00)
[2024-07-01] MEDS: lidocaine-epi 1% 20 mL INJ INJECTION (10:00)
--- NOTE | 2024-07-01 10:25 | P.OP_ITS ---
Operative Report Date of procedure: July 01, 2024 Pre-op diagnosis: Right inguinal hernia Post-op diagnosis: Right inguinal hernia Post-op findings: Indirect right inguinal hernia Procedure done: Open right inguinal hernia repaired with mesh Implants: Bard polypropylene mesh Specimens removed/disposition: Lipoma of the cord Surgeon: Sonny Owens MD Kiln Tester: [place] STaff Estimated blood loss: 10 Complications: none apparent Brief History: 73-year-old male with a right inguinal hernia who presents for possible repair. After discussion of all risk benefits as documented in my preop note with side to proceed. Procedure: Patient was brought into the OR, he was placed in a supine position. General anesthesia was given. The abdomen was prepped and draped in the usual sterile fashion. Timeout was conducted. I made a 7 cm incision in the right groin overlying the right inguinal canal. The incision was deepened with electroc autery until the aponeurosis of the external oblique was identified. The aponeurosis of the external oblique was opened in the direction of its fibers using Metzenbaum to ensure no injury to the underlying structures. The contents of the canal were then dissected from the de anda of the canal using blunt dissection and a peanut. During dissection the ilioinguinal nerve was identified and reflected inferiorly to protect that. I then proceeded to encircle the spermatic cord with a [place] drain. At this point I evaluated the floor of the canal and noted to be weakened but with no overt direct inguinal hernia. I then proceeded to open the cremaster muscle in a longitudinal direction. I then used blunt dissection to dissect the cord structures from the hernia sac and a lipoma of the cord. The lipoma of the cord that was in the 5 was large, I dissected all the way down to the internal inguinal ring, I then ligated and transected. The specimen was sent to pathology. The hernia sac t hat was identified was also dissected all the way down to the internal ring. I proceeded to twist the sac to ensure that there was no contents on it, I then did a high ligation of the sac using a #2-0 Vicryl. The sac was then pushed back into the preperitoneal space. At this point I placed the mesh that had been previously trimmed to fit into the floor of the canal. The mesh was then fixed with #0 Prolene to the pubic tubercle. I then proceeded to fix the mesh with #2-0 Prolene to the shelving edge of the inguinal ligament in the inferior direction, to the conjoined tendon on the superior direction and on the lateral portion I joined the tails of the mesh to recreate the internal ring using 2-0 Prolene. All nerve structures were preserved, the iliohypogastric nerve was not visualized. Hemostasis was verified. The wound was irrigated. I then proceeded to close aponeurosis of the external oblique with #2-0 Vicryl. The wound was then closed in layers using #3-0 Vicryl for Devonte's fascia and subcutaneous tissue #4 Monocryl for the skin. Local anesthesia was infiltrated in the skin before closing. Dermabond was applied. Compressive dressing was applied. At the end of the procedure all counts were correct, the patient tolerated well the procedure was transferred to the PACU in stable condition.
[2024-07-01] MEDS: fentaNYL 50 mcg/mL INJ 2mL IVP (10:49)
[2024-07-01] MEDS: oxyCODONE 5 mg IR Tab/Cap PO (11:39)
--- NOTE | 2024-07-01 11:59 | SUR.PHASEII ---
Addendum entered by Raman Hernandez RN 07/01/24 12:01: MEDICATED FOR GROIN PAIN. AT BEDSIDE. Original Note: 11:45 MEDICATED FOR REJI
--- NOTE | 2024-07-01 12:21 | ANE.PACU2 ---
Inpatient post-anesthesia follow up: Airway intact: Yes Vital signs: Temperature 97.7 F Pulse Rate 66 Respiratory Rate 66 Blood Pressure 140/71 Pulse Oximetry 90 Oxygen Delivery Me thod Room Air Oxygen Flow Rate 3 Fraction of Inspir ed Oxygen Hydration adequate: Yes Nausea and vomiting: No Pain level: 2 Mental status: Baseline
== END 2024-07-01 13:04 | disposition home or self-care (01) ==
PROVIDERS: PCP Family Medicine; Visit Provider Surgery
PROC: (CPT 49505; principal; 2024-07-01 08:30)
DX: K40.90 Unilateral inguinal hernia, without obstruction or gangrene, not specified as recurrent (principal); D17.6 Benign lipomatous neoplasm of spermatic cord; I10 Essential (primary) hypertension; K21.9 Gastro-esophageal reflux disease without esophagitis; Z79.899 Other long term (current) drug therapy; I25.10 Atherosclerotic heart disease of native coronary artery without angina pectoris; Z95.5 Presence of coronary angioplasty implant and graft; Z87.891 Personal history of nicotine dependence; Z79.02 Long term (current) use of antithrombotics/antiplatelets; Z79.82 Long term (current) use of aspirin
CPT/HCPCS: 49505; 55520; 88304; C1781; J0690; J1100; J2405; J2704; J3010; J3490; J7030; J9999

== ENCOUNTER → 2024-07-16 10:53 | Outpatient (BNVA) | payer MEDICARE, SELFPAY | PROVIDERS: PCP Family Medicine; Visit Provider Surgery | DX: Z98.890 Other specified postprocedural states (principal) | CPT/HCPCS: 99024 ==

== ENCOUNTER → 2024-07-23 07:41 | Outpatient (BNVA) | payer MEDICARE, SELFPAY | PROVIDERS: PCP Family Medicine; Visit Provider Psychiatry & Neurology Neurology | DX: G30.0 Alzheimer's disease with early onset (principal); F02.80 Dementia in other diseases classified elsewhere, unspecified severity, without behavioral disturbance, psychotic disturbance, mood disturbance, and anxiety; I10 Essential (primary) hypertension; G30.9 Alzheimer's disease, unspecified; E55.9 Vitamin D deficiency, unspecified; H91.90 Unspecified hearing loss, unspecified ear | CPT/HCPCS: 0346U; 36415; 82306; 82542; 82607; 82746; 83520; 83735; 84425; 84439; 84443; 84481; 86592; 99203 ==

== ENCOUNTER 2024-08-02 07:58 | Outpatient (CLI) | payer OTHER, SELFPAY ==
--- NOTE | 2024-08-02 08:30 | MR_ITS ---
WS: [id number] MRI BRAIN WITH AND WITHOUT CONTRAST HISTORY: G30.0 - Alzheimer's disease with early onset COMPARISON: None available. TECHNIQUE: Multiplanar imaging performed through the brain with MultiHance 15 ml's IV. No acute infarcts are seen. Powers-white matter differentiation is well preserved. Moderate symmetric volume loss in the cerebrum and cerebellum. Very mild small vessel ischemic type changes in the periventricular and subcortical white matter. No large prior infarcts. Mild bilateral hippocampal atrophy, LEFT greater than RIGHT. No susceptibility artifacts or prior lacunar infarcts. Ventricles are prominent on the basis of atrophy. No transependymal flow of CSF. Clivus and pituitary gland are normal. Visualized posterior fossa and brainstem are also normal. Postcontrast images are negative for masses or vascular malformations. Dural venous sinuses are normal. Paranasal sinuses: Small air-fluid level in the RIGHT maxillary sinus. Mastoid air cells: Normal. Calvarium and scalp: Normal. MR/MR head wo/w con [id number] IMPRESSION: 1. No acute infarct, hemorrhage or mass. 2. Moderate symmetric volume loss in the cerebrum and cerebellum. 3. Mild small vessel ischemic disease. 4. Mild bilateral hippocampal atrophy, LEFT greater than RIGHT. 5. Mild diffuse ventriculomegaly on the basis of atrophy.
--- NOTE | 2024-08-02 09:15 | MR_ITS ---
WS: [id number] MRA CAROTID ARTERIES HISTORY: G30.0 - Alzheimer's disease with early onset COMPARISON: None available. TECHNIQUE: MRA is performed with intravenous gadolinium. MIP and source images are reviewed. Right: No significant stenosis or plaque. Internal/external carotid arteries are normal. Left: No significant stenosis or plaque. Internal and external carotid arteries are normal. Subclavian Arteries: Mildly tortuous but patent. RIGHT vertebral artery is slightly obscured by overlying venous contamination. Vertebral Arteries: Normal and patent. MR/MR angio neck w con* [id number] IMPRESSION: No significant cervical carotid artery stenosis or plaque. Patent bilateral vertebral arteries.
[2024-08-02] MEDS: gadobenate dimeglumine 20 mL vial 15 ML IV (09:36)
--- NOTE | 2024-08-02 10:00 | MR_ITS ---
WS: [id number] MRA ANGIOGRAPHY [place] OF [place] HISTORY: G30.0 - Alzheimer's disease with early onset COMPARISON: None available. TECHNIQUE: 3-D MR angiography is performed of the [place] of [place]. All images are reviewed including source images. Distal vertebral and basilar arteries are intact with no significant stenosis or plaque. Posterior cerebral arteries are normal course and caliber. Posterior communicating arteries are both patent. Intracranial portion of the internal carotid arteries are normal course and caliber. No significant atherosclerosis, stenosis or aneurysm identified. Middle and anterior cerebral arteries are both patent with no significant disease. Anterior communicating artery is also normal. Volume loss and ventriculomegaly noted within the brain. MRI brain is being performed on the same date. MR/MR angio head wo con [id number] IMPRESSION: Normal MRA [place] of [place].
== END 2024-08-02 07:59 | disposition home or self-care (01) ==
LOC: RAD 08:01
PROVIDERS: PCP Family Medicine; Visit Provider Psychiatry & Neurology Neurology
DX: G30.0 Alzheimer's disease with early onset (principal); F02.80 Dementia in other diseases classified elsewhere, unspecified severity, without behavioral disturbance, psychotic disturbance, mood disturbance, and anxiety; R93.0 Abnormal findings on diagnostic imaging of skull and head, not elsewhere classified; I67.89 Other cerebrovascular disease; G31.89 Other specified degenerative diseases of nervous system; J34.89 Other specified disorders of nose and nasal sinuses; R93.89 Abnormal findings on diagnostic imaging of other specified body structures
CPT/HCPCS: 70544; 70548; 70553; A9577

== ENCOUNTER → 2025-03-24 08:25 | Outpatient (BNVA) | payer OTHER, SELFPAY | PROVIDERS: PCP Family Medicine; Visit Provider Family Medicine | DX: I10 Essential (primary) hypertension (principal); I25.10 Atherosclerotic heart disease of native coronary artery without angina pectoris; E78.2 Mixed hyperlipidemia; M19.90 Unspecified osteoarthritis, unspecified site; G89.4 Chronic pain syndrome; G30.0 Alzheimer's disease with early onset; F02.80 Dementia in other diseases classified elsewhere, unspecified severity, without behavioral disturbance, psychotic disturbance, mood disturbance, and anxiety; E03.9 Hypothyroidism, unspecified | CPT/HCPCS: 80053; 80061; 82607; 84443; 85025 ==